=== PATIENT | male | born 1975 | race Asian ===

== ENCOUNTER 2024-09-16 14:44 | Emergency (ER) | payer OTHER ==
[~2024-09-16] VITALS: Ht 170.2 cm; Wt 65.8 kg
[2024-09-16] MEDS ORDERED: ITRA100 PO (17:41)
== END 2024-09-16 17:52 | disposition home or self-care (01) ==
LOC: ER 14:44
DX: B35.4 Tinea corporis (principal); F17.200 Nicotine dependence, unspecified, uncomplicated; Z79.899 Other long term (current) drug therapy
CPT/HCPCS: 99282